=== PATIENT | male | born 1980 | race Caucasian/White ===

== ENCOUNTER → 2016-06-03 | Outpatient (CLI) | payer OTHER ==
--- NOTE | 2016-06-03 16:02 | REP ---
CERVICAL SPINE, EIGHT VIEWS: HISTORY: Otalgia. The cervical spine is visualized from C1 to C7 in the lateral radiographs. There is no acute fracture or subluxation. The intervertebral discs are normal in height. The neural foramina are patent. There is loss of the normal lordotic curve. IMPRESSION: There is no acute fracture or subluxation. Signed by Pollo Ruiz MD 06/03/2016 04:49 P
== END | disposition home or self-care (01) ==
LOC: M RAD 14:43
DX: H92.01 Otalgia, right ear (principal)